=== PATIENT | female | born 1990 | race Two or more races ===

== ENCOUNTER 2024-08-25 08:11 | Emergency (ER) | payer SELFPAY ==
[~2024-08-25] VITALS: Ht 152.4 cm; Wt 83.8 kg
[2024-08-25] MEDS: HYDROcodone-ACET 5/325MG TAB PO ONE (09:00)
--- NOTE | 2024-08-25 09:11 | ED.PDOC ---
GI ASSESSMENT HPI Comments 33-year-old female presents here with nausea vomiting and diarrhea since Monday which is proximally 6 days ago. She states the vomiting resolved however the diarrhea has persisted. She states the diarrhea was also intermittent. She has states she has been able to eat little bit but anytime she eats anything at all she has significant nausea. She has been using coconut water, Pedialyte water. Eating small amounts of food. No sick contacts no known spoke food that she has consumed. Denies any cough cold runny nose fever or chills. Does report mild abdominal cramping. No recent camping or travel. Chief Complaint: Nausea/Vomiting Time Seen by MD: 08:55 Primary Care Provider: UNKNOWN Reviewed Notes: Nurses Notes, Medications, Allergies Allergies: Coded Allergies: Amoxicillin (Verified Allergy, Severe, 08/25/24) Codeine (Verified Allergy, Severe, 08/25/24) Doxycycline (Verified Allergy, Severe, 08/25/24) Information Source: Patient Mode of Arrival: Ambulatory Timing: Days Duration: Since onset Prehospital treatment: None Quality: None Vomitus: Watery Stool: Normal Severity: Moderate Recent: None Recent Hx of: None Pain Location: None Modifying Factors: Nothing Associated sign and symptoms: Nausea, Vomiting Past Medical History PAST MEDICAL HISTORY: Denies Surgical History: Denies all surgeries SUPERINTENDENT METER TESTS History: Denies all SUPERINTENDENT METER TESTS Hx Family History Family History: Unknown Social History Smoker: Non-Smoker Alcohol: Denies ETOH Use Drugs: Denies Drug Use Lives In: Home Constitutional: denies: chills, diaphoresis, fatigue, fever, malaise, sweats, weakness, others EENTM: denies: blurred vision, double vision, ear bleeding, ear discharge, ear drainage, ear pain, ear ringing, eye pain, eye redness, hearing loss, mouth pain, mouth swelling, nasal discharge, nose bleeding, nose congestion, nose pain , photophobia, tearing, throat pain, throat swelling, voice changes, others Respiratory: denies: cough, hemoptysis, orthopnea, SOB at rest, shortness of breath, SOB with excertion, stridor, wheezing, others Cardiovascular: denies: chest pain, dizzy spells, diaphoresis, Dyspnea on exertion, edema, irregular heart beat, left arm pain, lightheadedness, palpitations, PND, syncope, others Gastrointestinal: reports: nausea, vomiting; denies: abdomen distended, abdominal pain, blood streaked bowels, constipated, diarrhea, dysphagia, difficulty swallowing, hematemesis, melena, poor appetite, poor fluid intake, rectal bleeding, rectal pain, others Genitourinary: reports: flank pain (RIGHT); denies: abnormal vagina bleeding, burning, dyspareunia, dysuria, frequency, hematuria, incontinence, pain, , vagina discharge, urgency, others Neurological: denies: dizziness, fainting, headache, left sided numbness, left sided weakness, numbness, paresthesia, pre-existing deficit, right sided numbness, right sided weakness, seizure, speech problems, tingling, tremors, weakness, others Musculoskeletal: denies: back pain, gout, joint pain, joint swelling, muscle pain, muscle stiffness, neck pain, others Integumetry: denies: bruises, change in color, change in hair/nails, dryness, laceration, lesions, lumps, rash, wounds, others Allergic/Immunocompromised: denies: Difficulty Healing, Frequent Infections, Hives, Itching, others Hematologic/Lymphatic: denies: anemia, blood clots, easy bleeding, easy bruising, swollen glands, others Endocrine: denies: excessive hunger, excessive sweating, excessive thirst, excessive urination, flushing, intolerance to cold, intolerance to heat, unexplained weight gain, unexplained weight loss, others Psychiatric: denies: anxiety, bipolar disorder, depression, hopeless, panic disorder, schizophrenia, sleepless, suicidal, others All Other Systems: Reviewed and Negative Physical Exam General Appearance: No Apparent Distress, Normal HEENT: Normal ENT Inspection, Pharynx Normal Neck: Full Range of Motion, Non-Tender, Normal, Normal Inspection Respiratory: Chest Non-Tender, Lungs Clear, No Accessory Muscle Use, No Respiratory Distress, Normal Breath Sounds Cardiovascular: No Edema, No Murmur, No Gallop, Normal Peripheral Pulses, Regular Rate/Rhythm Breast Exam: Deferred Gastrointestinal: No Organomegaly, Non Tender, No Pulsatile Mass, Normal Bowel Sounds, Soft Genitalia: Deferred Pelvic: Deferred Rectal: Deferred Extremities: No calf tenderness, Normal capillary refill, Normal inspection, Normal range of motion, Non-tender, No pedal edema Musculoskeletal : Apperance: Normal Neurologic: Alert, fire official II-XII nml as Tested, No Motor Deficits, Normal Affect, Normal Mood, No Sensory Deficits Cerebellar Function: Normal Reflexes: Normal Skin: Dry, Normal Color, Warm Lymphatic: No Adenopathy Was a procedure done? Was a procedure done?: No GI differential Dx Differential Diagnosis: Gastritis/PUD, Gastroenteritis, Electrolyte Imbalance, Food Poisoning Other Differential Diagnosis Dehydration, gastroenteritis, food poisoning, cholecystitis, pancreatitis, electrolyte disturbance, X-Ray, Labs, Meds, VS Vital Signs Date Time Temp Pulse Resp B/P (MAP) Pulse Ox O2 Delivery O2 Flow Rate FiO2 08/25/24 08:23 98.1 78 16 129/85 (100) 98 98.1 Lab Test 08/25/24 09:06 08/25/24 09:00 Range/Units White Blood Count 4.5 4.4-10.8 10^3/uL Red Blood Count 4.62 4.0-5.20 10^6/uL Hemoglobin 14.9 12.2-16.2 g/dL Hematocrit 42.7 36.0-46.0 % Mean Corpuscular Volume 92.4 80.0-100.0 fL Mean Corpuscular Hemoglobin 32.2 H 28.0-32.0 pg Mean Corpuscular Hemoglobin Concent 34.9 32.0-36.0 g/dL Red Cell Distribution Width 13.0 11.8-14.3 % Platelet Count 210 140-450 10^3/uL Mean Platelet Volume 9.1 6.9-10.8 fL Neutrophils (%) (Auto) 52.4 37.0-80.0 % Lymphocytes (%) (Auto) 38.7 10.0-50.0 % Monocytes (%) (Auto) 7.3 0.0-12.0 % Eosinophils (%) (Auto) 0.6 0.0-7.0 % Basophils (%) (Auto) 1.0 0.0-2.0 % Neutrophils # (Auto) 2.4 1.6-8.6 10 ^3/uL Lymphocytes # (Auto) 1.8 0.4-5.4 10 ^3/uL Monocytes # (Auto) 0.3 0-1.3 10 ^3/uL Eosinophils # (Auto) 0 0-0.8 10 ^3/uL Basophils # (Auto) 0 0-0.2 10 ^3/uL Nucleated Red Blood Cells 0.1 % Sodium Level 140 136-145 mmol/L Potassium Level 4.0 3.5-5.1 mmol/L Chloride Level 105 98-107 mmol/L Carbon Dioxide Level 28 20-31 mmol/L Anion Gap 7 5-15 Blood Urea Nitrogen 7 L 9-23 mg/dL Creatinine 0.74 0.550-1.02 mg/dL Glomerular Filtration Rate Calc 111 >90 mL/min BUN/Creatinine Ratio 9.5 L 10.0-20.0 Serum Glucose 87 74-106 mg/dL Calcium Level 10.2 8.7-10.4 mg/dL Total Bilirubin 0.7 0.2-1.0 mg/dL Aspartate Amino Transferase (AST) 15 13-40 U/L Alanine Aminotransferase (ALT) 16 7-40 U/L Alkaline Phosphatase 64 46-116 U/L Total Protein 7.1 5.7-8.2 g/dL Albumin 4.7 3.2-4.8 g/dL Urine Color Straw Yellow Urine Clarity Cloudy Clear Urine pH 7.5 5.0-9.0 Urine Specific [place] 1.006 1.001-1.035 Urine Protein Negative Negative Urine Ketones Negative Negative Urine Blood Negative Negative /uL Urine Nitrite Negative Negative Urine Bilirubin Negative Negative Urine Urobilinogen Normal Negative mg/dL Urine Leukocyte Esterase Negative Negative /uL Urine RBC 1 0 - 4 /hpf Urine Microscopic WBC < 1 0-5 /HPF Urine Squamous Epithelial Cells Mod <5 /hpf Urine Bacteria Few H None Seen /hpf Urine Glucose Normal Normal mg/dL Urine Test Negative Negative 33-year-old female presents here with nausea vomiting diarrhea for the last 6 days. Her symptoms have been intermittent so she has been able to consume small amounts of food and seems that she is keeping herself hydrated at this time. I have given her Zofran and simethicone in the ED. CBC CMP, lipase urinalysis and urine test has been ordered which are within normal limits. I have given her Zofran and simethicone in the ED. at this time abdomen is soft and nontender. Doubt acute surgical pathology. Doubt cholecystitis, pancreatitis. I have sent a prescription for Zofran and simethicone. Advised her to follow up with the PCP in 2-3 days and return to ER if symptoms worsen or persist. Patient agreeable and understands. Time of 1ST Reevaluation: 09:25 Reevaluation 1ST: Unchanged Patient Education/Counseling: Diagnosis, Treatment Family Education/Counseling: No Family Present SEPSIS Sepsis Screen Date sepsis recognized/suspect: Aug 25, 2024 Time Sepsis recognized/suspect: 812 Recent Procedure: No On Antibiotic Therapy: No Respiratory Rate >20: No Heart Rate >90: No Temp<36 C (96.8 F) or >38.3 C: No SBP <90 or MAP <65 mmHG: No New Acute Mental Status Change: No Is the patient on CPAP, BIPAP,: No Vital Signs Date Time Temp Pulse Resp B/P (MAP) Pulse Ox O2 Delivery O2 Flow Rate FiO2 08/25/24 08:23 98.1 78 16 129/85 (100) 98 98.1 Laboratory Tests Test 08/25/24 09:06 White Blood Count 4.5 10^3/uL (4.4-10.8) Departure 1 Departure Time of Disposition: 11:25 Impression: Primary Impression: Gastroenteritis Disposition: HOME / SELF CARE / HOMELESS Condition: Stable e-Prescriptions Simethicone (Simethicone) 80 Mg Chw 80 MG PO Q6HPRN PRN for 7 Days, #30 TAB.CHEW Prov: LAKESHIA DIAZ MD 08/25/24 Ondansetron Odt 4MG Tab (ZOFRAN PO) 4 Mg Tb 4 MG PO Q8HPRN PRN for 10 Days, #30 TAB ODT TAB-DISSOLVE IN MOUTH, THEN SWALLOW Prov: LAKESHIA DIAZ MD 08/25/24 Critical Care Note Critical Care Time?: No Stability Stability form required: No Heart Score Heart Score: Heart Score Response (Comments) Value History N/A 0 EKG N/A 0 Age N/A 0 Risk Factors N/A 0 Troponin N/A 0 Total 0 I personally scribed for LAKESHIA DIAZ MD ([email or web address]) on 08/25/24 at 09:11. Electronically submitted by Jael Buckner ([email or web address]). I personally scribed for LAKESHIA DIAZ MD ([email or web address]) on 08/25/24 at 09:25. Electronically submitted by Jael Buckner ([email or web address]). LAKESHIA DIAZ MD Aug 25, 2024 09:11
[2024-08-25 09:35] LABS: Hematocrit 42.7 % (36.0-46.0); Hemoglobin 14.9 g/dL (12.2-16.2); Mean Corpuscular Hemoglobin 32.2 pg (28.0-32.0); Mean Corpuscular Volume 92.4 fL (80.0-100.0); Nucleated Red Blood Cells % 0.1 %
[2024-08-25 09:53] LABS: Alanine Aminotransferase 16 U/L (7-40); Albumin 4.7 g/dL (3.2-4.8); Alkaline Phosphatase 64 U/L (46-116); Anion Gap 7 (5-15); BUN/Creatinine Ratio 9.5 (10.0-20.0); Blood Urea Nitrogen 7 mg/dL (9-23); Calcium 10.2 mg/dL (8.7-10.4); Carbon Dioxide 28 mmol/L (20-31); Chloride 105 mmol/L (98-107); Glucose 87 mg/dL (74-106); Potassium 4.0 mmol/L (3.5-5.1); Sodium 140 mmol/L (136-145); Total Protein 7.1 g/dL (5.7-8.2)
[2024-08-25 09:54] LABS: Bilirubin, Total 0.7 mg/dL (0.2-1.0)
[2024-08-25 10:04] LABS: Urine Protein, UAD Negative (Negative)
[2024-08-25] MEDS ORDERED: SIME80CH49 PO (11:09)
[2024-08-25] MEDS ORDERED: ZOFR4T PO (11:09)
[2024-08-25] MEDS: SIMETHICONE 80 MG CHEWABLE TABLET PO ONE (11:45)
[2024-08-25] MEDS: ONDANSETRON ODT 4 MG TAB PO ONE ×2 (11:46→11:47)
[2024-08-25 11:48] VITALS: BP 146/91; PULSE 73; RESP 16; TEMP 98.2; O2SAT 97
== END 2024-08-25 11:53 | disposition home or self-care (01) ==
LOC: ER 08:11
DX: K52.9 Noninfective gastroenteritis and colitis, unspecified (principal); Z88.1 Allergy status to other antibiotic agents; Z88.5 Allergy status to narcotic agent
CPT/HCPCS: 36415; 80053; 81001; 81025; 85025